=== PATIENT | male | born 1950 | race African-American/Black ===

== ENCOUNTER 2025-10-18 16:20 | Emergency (ER) | payer BC, MEDICAID ==
[~2025-10-18] VITALS: Ht 172.7 cm; Wt 75.0 kg
[2025-10-18 16:32] VITALS: O2SAT 96
[2025-10-18] MEDS ORDERED: SPIR25TA6 MT (17:47)
[2025-10-18] MEDS ORDERED: TAMS-54 MT (17:47)
[2025-10-18] MEDS ORDERED: ASPI-1406 MT (17:47)
[2025-10-18] MEDS ORDERED: EMPA10TA MT (17:47)
[2025-10-18] MEDS ORDERED: SACU1TAB7 MT (17:47)
[2025-10-18 18:21] VITALS: BP 147/95; PULSE 84; RESP 18; TEMP 36.7; O2SAT 96
== END 2025-10-18 18:23 | disposition home or self-care (01) ==
LOC: ER 16:20
DX: I10 Essential (primary) hypertension (principal); N40.0 Benign prostatic hyperplasia without lower urinary tract symptoms; E11.9 Type 2 diabetes mellitus without complications; E78.00 Pure hypercholesterolemia, unspecified; Z76.0 Encounter for issue of repeat prescription; Z79.82 Long term (current) use of aspirin; Z79.84 Long term (current) use of oral hypoglycemic drugs; Z79.899 Other long term (current) drug therapy
CPT/HCPCS: 99282